=== PATIENT | female | born 2000 | race Hispanic/Latino ===

== ENCOUNTER 2019-03-17 13:59 | Emergency (ER) | payer BC, OTHER ==
[2019-03-17] MEDS ORDERED: NA CHLORIDE 0.9% 1,000 ML ONE (15:16)
[2019-03-17] MEDS ORDERED: ONDANSETRON 4 MG/2 ML VIAL ONE (15:16)
[2019-03-17 15:20] LABS: Absolute Lymphocytes (CBC) 0.9 K/uL (0.7-4.9); Absolute Monocytes 0.7 K/uL (0.1-1.3); Absolute Neutrophil 11.5 K/uL (1.8-8.0); Basophils % 0.3 % (0-1.3); Eosinophils % 0.3 % (0-4.4); Hematocrit 42.7 % (36.0-45.0); Lymphocytes % 6.5 % (15.3-44.8); Monocytes % 5.5 % (3.3-12.3); RBC Red Blood Cell Count 4.84 M/uL (3.86-4.86)
[2019-03-17 15:28] LABS: BUN Blood Urea Nitrogen 15 mg/dL (7-18); Bicarbonate 28 mmol/L (21-32); Glucose Level 122 mg/dL (74-106); Magnesium 1.9 mg/dL (1.8-2.4); Potassium 3.8 mmol/L (3.5-5.1); Sodium Level 138 mmol/L (136-145)
[2019-03-17] MEDS ORDERED: DEXAMETHASONE 10 MG/ML VIAL ONE (15:35)
[2019-03-17] MEDS ORDERED: DIPHENHYDRAMINE 50 MG/ML VIAL ONE (15:35)
[2019-03-17] MEDS ORDERED: METOCLOPRAMIDE 10 MG/2mL INJ ONE (15:35)
[2019-03-17] MEDS ORDERED: KETOROLAC 30 MG/ML INJ ONE (15:35)
--- NOTE | 2019-03-17 15:44 | RAD REPORT ---
EXAM DESCRIPTION: CT - Head Brain Wo Cont - 03/17/2019 3:15 pm CLINICAL HISTORY: Headache COMPARISON: None. TECHNIQUE: Computed axial tomography of the head was obtained. IV contrast was not requested. All CT scans are performed using dose optimization technique as appropriate and may include automated exposure control or mA/KV adjustment according to patient size. FINDINGS: An intracranial bleed is not seen . The ventricles are normal in caliber. No extra-axial fluid collection is noted. Fluid within the sinuses/ mastoids is not seen. IMPRESSION: No acute intracranial abnormality is seen. If patient's symptoms persist MRI of the bra in would be recommended.
[2019-03-17 15:48] LABS: Urine Bacteria 20-50 /HPF (<20); Urine Culture Reflex Order REFLEXED; Urine Mucus 1+ /HPF (NONE SEEN); Urine RBC <5 /HPF (NONE SEEN)
[2019-03-17 15:50] LABS: Urine Blood NEGATIVE (NEG); Urine Glucose NEGATIVE (NEG); Urine Protein 2+ (NEG); Urine Specific Gravity 1.015 (1.005-1.030); Urine pH >8.5 (5.0-7.0)
--- NOTE | 2019-03-17 16:45 | RAD REPORT ---
EXAM DESCRIPTION: [facility] Angio03/17/2019 4:15 pm CLINICAL HISTORY: Left arm numbness COMPARISON: None TECHNIQUE: 50 cc Isovue 370 was administered intravenously. 3D MIP reconstruction performed All CT scans are performed using dose optimization technique as appropriate and may include automated exposure control or mA/KV adjustment according to patient size. FINDINGS: Artifact results in nonvisualization of the brachiocephalic and very proximal right commo n carotid artery. Otherwise the common carotid, internal carotid and external carotid arteries bilaterally are normal. Vertebral arteries are codominant without visualization of an abnormality IMPRESSION: Artifact results in nonvisualization of the brachiocephalic and very proximal right com mon carotid artery. Otherwise, unremarkable exam NASCET criteria used. Mild 0-49% stenosis Moderate 50-69% stenosis Severe 70-99% stenosis
--- NOTE | 2019-03-17 16:51 | RAD REPORT ---
EXAM DESCRIPTION: CTHead angio03/17/2019 4:14 pm CLINICAL HISTORY: Left arm numbness COMPARISON: None TECHNIQUE: CT angiogram of the head was obtained. 3D MIPS reconstruction performed. All CT scans are performed using dose optimization technique as appropriate and may include automated exposure control or mA/KV adjustment according to patient size. FINDINGS: The basilar, internal carotid, anterior cerebral, middle cerebral and posterior cerebral a rteries are normal caliber. An aneurysm is not seen. A significant stenosis is not noted. IMPRESSION: Unremarkable CT angiogram head.
--- NOTE | 2019-03-17 17:09 | ER ---
Nurse's Notes [facility] Name: Sabine Willis Age: 18 yrs Sex: Female : 2000 Arrival Date: 03/17/2019 Time: 14:07 Bed 23 Private MD: Diagnosis: Migraine, unspecified Presentation: 03/17 14:17 Presenting complaint: Patient states: "about an hour ago I started having a headache, aa5 having trouble seeing, and I threw up twice". Pt also c/o left arm tingling. 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 Transition of care: patient was not received from another setting of care. Onset of symptoms was March 17, 2019. Risk Assessment: Do you want to hurt yourself or someone else? Patient reports no desire to harm self or others. Initial Sepsis Screen: Does the patient meet any 2 criteria? No. Patient's initial sepsis screen is negative. Does the patient have a suspected source of infection? No. Patient's initial sepsis screen is negative. Care prior to arrival: None. 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 - Social history:: Smoking status: Patient/guardian denies using tobacco. - Ebola Screening: : No symptoms or risks identified at this time. Screenin:55 Abuse screen: Denies threats or abuse. Denies injuries from another. Nutritional ca1 screening: No deficits noted. Tuberculosis screening: No symptoms or risk factors identified. Fall Risk None identified. Assessment: 14:55 General: Appears in no apparent distress. comfortable, Behavior is calm, cooperative, ca1 appropriate for age. Pain: Complains of pain in face and scalp Pain does not radiate. Pain currently is 7 out of 10 on a pain scale. Pain began 3 hours ago. Is continuous. Neuro: Level of Consciousness is awake, alert, obeys commands, Oriented to person, place, time, situation. Neuro: Reports headache in right since 1230. Cardiovascular: Heart tones S1 S2 present Capillary refill < 3 seconds Patient's skin is warm and dry. Respiratory: Airway is patent Respiratory effort is even, unlabored, Respiratory pattern is regular, symmetrical, Breath sounds are clear bilaterally. GI: Abdomen is flat, non-distended, Bowel sounds present X 4 quads. Abd is soft and non tender X 4 quads. Reports nausea, vomiting, since 1230. : No deficits noted. No signs and/or symptoms were reported regarding the genitourinary system. EENT: No deficits noted. No signs and/or symptoms were reported regarding the EENT system. Derm: Skin is intact, is healthy with good turgor, Skin is pink, warm \\T\\ dry. Musculoskeletal: Circulation, motion, and sensation intact. Capillary refill < 3 seconds, Range of motion: intact in all extremities. 15:55 Reassessment: Patient appears in no apparent distress at this time. Patient and/or ca1 family updated on plan of care and expected duration. Pain level reassessed. Patient is alert, oriented x 3, equal unlabored respirations, skin warm/dry/pink. 16:51 Reassessment: Patient appears in no apparent distress at this time. Patient is alert, ca1 oriented x 3, equal unlabored respirations, skin warm/dry/pink. 17:18 Reassessment: Patient appears in no apparent distress at this time. Patient is alert, ca1 oriented x 3, equal unlabored respirations, skin warm/dry/pink. Patient states feeling better. Vital Signs: 14:18 BP 119 / 63; Pulse 75; Resp 16 S; Temp 98.2(O); Pulse Ox 98% on R/A; Weight 73.94 kg aa5 (R); Height 5 ft. 3 in. (160.02 cm) (R); Pain 9/10; 14:55 BP 110 / 73; Pulse 73; Resp 17 S; Temp 98.1(O); Pulse Ox 100% on R/A; ca1 16:55 BP 114 / 57; Pulse 76; Resp 18 S; Temp 98.2(O); Pulse Ox 100% on R/A; ca1 17:18 BP 108 / 60; Pulse 73; Resp 18 S; Pulse Ox 100% on R/A; ca1 14:18 Body Mass Index 28.87 (73.94 kg, 160.02 cm) aa5 Mounika Coma Score: 17:08 Eye Response: spontaneous(4). Verbal Response: oriented(5). Motor Response: obeys cp commands(6). Total: 15. ED Course: 14:07 Patient arrived in ED. mr 14:17 Arm band placed on. aa5 14:18 Triage completed. aa5 14:46 Srinath Mahan PA is PHCP. cp 14:46 Guanakito Pimentel MD is Attending Physician. cp 14:55 Patient has correct armband on for positive identification. Placed in gown. Bed in low ca1 position. Call light in reach. Side rails up X 1. Pulse ox on. NIBP on. Door closed. Noise minimized. Lights dimmed. Warm blanket given. 14:55 No provider procedures requiring assistance completed. ca1 14:56 Karissa Gillis, RN is Primary Nurse. ca1 15:00 Inserted saline lock: 20 gauge in right antecubital area, using aseptic technique. rv Blood collected. 15:12 Urine Microscopic Only Sent. rv 15:[address] via wheelchair. em2 15:14 CT completed. Patient tolerated procedure well. Patient moved back from CT. em2 15:33 CT Head Brain wo Cont In Process Unspecified. EDMS 16:18 CT Head Angio In Process Unspecified. EDMS 16:18 CT Neck Angio In Process Unspecified. EDMS 17:08 Billy Mcallister MD is Referral Physician. cp 17:19 IV discontinued, intact, bleeding controlled, No redness/swelling at site. Pressure ca1 dressing applied. Administered Medications: 15:05 Drug: NS 0.9% 1000 ml Route: IV; Rate: 1 bolus; Site: right antecubital; rv 16:54 Follow up: Urine output 210 ml; Response: No adverse reaction; IV Status: Completed ca1 infusion 15:05 Drug: Zofran 4 mg Route: IVP; Site: right antecubital; rv 15:34 Follow up: Response: No adverse reaction; Nausea is decreased; Vomiting decreased ca1 15:17 Drug: TORadol 30 mg Route: IVP; Site: right antecubital; ca1 16:54 Follow up: Response: No adverse reaction; Marked relief of symptoms ca1 15:19 Drug: Benadryl 25 mg Route: IVP; Site: right antecubital; ca1 16:54 Follow up: Response: No adverse reaction; Marked relief of symptoms ca1 15:25 Drug: Decadron - Dexamethasone 10 mg Route: IVP; Site: right antecubital; ca1 16:54 Follow up: Response: No adverse reaction; Marked relief of symptoms ca1 15:30 Drug: Reglan 10 mg Route: IVP; Site: right antecubital; ca1 16:53 Follow up: Response: No adverse reaction; Marked relief of symptoms ca1 Output: 16:54 Urine: 210ml; Total: 210ml. ca1 Outcome: 17:09 Discharge ordered by . cp 17:19 Discharged to home ambulatory, with family. ca1 17:19 Condition: stable 17:19 Discharge instructions given to patient, Instructed on discharge instructions, follow up and referral plans. medication usage, Demonstrated understanding of instructions, follow-up care, medications, Prescriptions given X 2. 17:20 Patient left the ED. ca1 Addendum: 03/21/2019 17:23 Addendum: Culture Results: Positive urine culture. No further action required. Other: i w report was reviewed by Dr. Oliveira, pt had no urinary symptoms, no need for antibiotics . Signatures: Dispatcher [employer] [facility] Betzaida Avalos Khushbu Heredia RN RN iw Roma Lomeli RN RN aa5 Suhas Gomez em2 Srinath Mahan PA PA Antonio Romero, RN RN rv Karissa Gillis RN RN ca1 Corrections: (The following items were deleted from the chart) 03/17 14:18 14:18 Immunization history: Flu vaccine is not up to date. aa5 aa5 14:19 14:17 Acuity: TREVOR 3 aa5 aa5 14:23 14:17 Presenting complaint: Patient states: "about an hour ago I started having a aa5 headache, having trouble seeing, and I threw up twice". Pt also c/o left arm tingling. aa5 16:57 16:55 BP 114 / 57; Pulse 76bpm; Resp 18bpm; Spontaneous; Pulse Ox 100% RA; ca1 ca1
--- NOTE | 2019-03-17 17:09 | EDPHYS ---
Physician Documentation [facility] Name: Sabine Willis Age: 18 yrs Sex: Female : 2000 Arrival Date: 03/17/2019 Time: 14:07 Bed 23 Private MD: ED Physician Guanakito Pimentel HPI: 03/17 14:52 This 18 yrs old Female presents to ER via Ambulatory with complaints of cp Vomiting, Numbness Of Arm, Dizziness. 14:55 The patient complains of pain to the right side of head. cp 14:55 The patient describes the headache as constant. 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 Associated signs and symptoms: Pertinent positives: Photophobia double vision, vomiting, numbness of arms initially and now numbness of hands. Severity of symptoms: At its worst the pain was "never this severe". Headache History: Denies prior headaches. 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 - Social history:: Smoking status: Patient/guardian denies using tobacco. - Ebola Screening: : No symptoms or risks identified at this time. ROS: 15:00 Constitutional: Negative for body aches, chills, fever, poor PO intake. cp 15:00 Eyes: Positive for blurry vision, Negative for discharge, pain, redness, vision loss. cp 15:00 ENT: Negative for drainage from ear(s), ear pain, sinus congestion, sinus pain, sore throat, difficulty swallowing, difficulty handling secretions. 15:00 Neck: Negative for pain with movement, pain at rest, stiffness, swollen nodes, tenderness, bony tenderness. 15:00 Cardiovascular: Negative for chest pain, palpitations. 15:00 Respiratory: Negative for cough, shortness of breath, wheezing. 15:00 Abdomen/GI: Positive for nausea and vomiting, Negative for abdominal pain, diarrhea, constipation, black/tarry stool, rectal bleeding. 15:00 Back: Negative for pain at rest, pain with movement, radiated pain. 15:00 : Negative for urinary symptoms. 15:00 Skin: Negative for rash. 15:00 Neuro: Positive for dizziness, headache, tingling, of the right hand and left hand, Negative for altered mental status, weakness. 15:00 All other systems are negative. Exam: 15:05 Head/Face: Normocephalic, atraumatic. Eyes: Pupils equal round and reactive to light, cp extra-ocular motions intact. Lids and lashes normal. Conjunctiva and sclera are non-icteric and not injected. Cornea within normal limits. Periorbital areas with no swelling, redness, or edema. ENT: Nares patent. No nasal discharge, no septal abnormalities noted. Tympanic membranes are normal and external auditory canals are clear. Oropharynx with no redness, swelling, or masses, exudates, or evidence of obstruction, uvula midline. Mucous membranes moist. Neck: Trachea midline, no thyromegaly or masses palpated, and no cervical lymphadenopathy. Supple, full range of motion without nuchal rigidity, or vertebral point tenderness. No Meningismus. Chest/axilla: Normal chest wall appearance and motion. Nontender with no deformity. No lesions are appreciated. 15:05 Constitutional: The patient appears in no acute distress, alert, awake, non-toxic, well developed, well nourished, uncomfortable. Vital Signs: 14:18 BP 119 / 63; Pulse 75; Resp 16 S; Temp 98.2(O); Pulse Ox 98% on R/A; Weight 73.94 kg aa5 (R); Height 5 ft. 3 in. (160.02 cm) (R); Pain 9/10; 14:55 BP 110 / 73; Pulse 73; Resp 17 S; Temp 98.1(O); Pulse Ox 100% on R/A; ca1 16:55 BP 114 / 57; Pulse 76; Resp 18 S; Temp 98.2(O); Pulse Ox 100% on R/A; ca1 17:18 BP 108 / 60; Pulse 73; Resp 18 S; Pulse Ox 100% on R/A; ca1 14:18 Body Mass Index 28.87 (73.94 kg, 160.02 cm) aa5 Mounika Coma Score: 17:08 Eye Response: spontaneous(4). Verbal Response: oriented(5). Motor Response: obeys cp commands(6). Total: 15. MDM: 03/16 17:00 Data reviewed: vital signs, nurses notes, lab test result(s), radiologic studies, CT cp scan, I have discussed the patient's presentation/case with the attending Emergency Department Physician;. 03/17 14:46 Patient medically screened. 15:00 Differential diagnosis: cluster headache, meningitis, meningoencephalitis, migraine, cp subarachnoid bleed, subdural hematoma, tension headache, trigeminal neuralgia. 17:08 Counseling: I had a detailed discussion with the patient and/or guardian regarding: the cp historical points, exam findings, and any diagnostic results supporting the discharge/admit diagnosis, lab results, radiology results, the need for outpatient follow up, a neurologist, to return to the emergency department if symptoms worsen or persist or if there are any questions or concerns that arise at home. Response to treatment: the patient's symptoms have markedly improved after treatment, VSS. Headache markedly improved, and as a result, I will discharge patient. 03/17 14:55 Order name: CBC with Diff 03/17 14:55 Order name: BMP 03/17 14:55 Order name: Magnesium cp 03/17 14:55 Order name: Urine Microscopic Only; Complete Time: 15:57 03/17 15:11 Order name: Urine Dipstick--Ancillary (enter results); Complete Time: 15:57 03/17 15:11 Order name: Urine --Ancillary (enter results); Complete Time: 15:57 03/17 14:55 Order name: CT Head Brain wo Cont; Complete Time: 15:57 03/17 15:25 Order name: CBC with Automated Diff EDPR 03/17 15:53 Order name: Urine Culture EDPR 03/17 15:58 Order name: CT Head Angio; Complete Time: 16:54 cp 03/17 16:54 Interpretation: Report reviewed. 03/17 15:58 Order name: CT Neck Angio; Complete Time: 16:54 03/17 14:55 Order name: Urine Dipstick-Ancillary (obtain specimen); Complete Time: 15:09 cp 03/17 14:55 Order name: Urine Test (obtain specimen); Complete Time: 15:09 cp 03/17 14:55 Order name: IV; Complete Time: 14:56 cp Administered Medications: 15:05 Drug: NS 0.9% 1000 ml Route: IV; Rate: 1 bolus; Site: right antecubital; rv 16:54 Follow up: Urine output 210 ml; Response: No adverse reaction; IV Status: Completed ca1 infusion 15:05 Drug: Zofran 4 mg Route: IVP; Site: right antecubital; rv 15:34 Follow up: Response: No adverse reaction; Nausea is decreased; Vomiting decreased ca1 15:17 Drug: TORadol 30 mg Route: IVP; Site: right antecubital; ca1 16:54 Follow up: Response: No adverse reaction; Marked relief of symptoms ca1 15:19 Drug: Benadryl 25 mg Route: IVP; Site: right antecubital; ca1 16:54 Follow up: Response: No adverse reaction; Marked relief of symptoms ca1 15:25 Drug: Decadron - Dexamethasone 10 mg Route: IVP; Site: right antecubital; ca1 16:54 Follow up: Response: No adverse reaction; Marked relief of symptoms ca1 15:30 Drug: Reglan 10 mg Route: IVP; Site: right antecubital; ca1 16:53 Follow up: Response: No adverse reaction; Marked relief of symptoms ca1 Disposition: 17:30 Chart complete. 03/18 07:28 Co-signature as Attending Physician, Guanakito Pimentel MD. rn Disposition: 03/17/19 17:09 Discharged to Home. Impression: Migraine, unspecified. - Condition is Stable. - Discharge Instructions: Migraine Headache. - Prescriptions for Fiorinal 50- 325-40 mg Oral Capsule - take 1 capsule by ORAL route every 4 hours As needed - not to exceed 6 capsules per day; 20 capsule. Zofran 4 mg Oral Tablet - take 1 tablet by ORAL route every 12 hours As needed; 20 tablet. - Medication Reconciliation Form, Thank You Letter, Antibiotic Education, Prescription Opioid Use form. - Follow up: Billy Mcallister MD; When: 2 - 3 days; Reason: Worsening of condition. - Problem is new. - Symptoms have improved. Signatures: Dispatcher [employer] EDMS Guanakito Pimentel MD MD rn Calderon, Audri, RN RN aa5 Srinath Mahan PA PA cp Vicente, Ronaldo RN RN rv AcKarissa pryor RN RN ca1 Corrections: (The following items were deleted from the chart) 03/17 14:18 14:18 Immunization history: Flu vaccine is not up to date. aa5 aa5 17:20 17:09 03/17/2019 17:09 Discharged to Home. Impression: Migraine, unspecified. Condition ca1 is Stable. Forms are Medication Reconciliation Form, Thank You Letter, Antibiotic Education, Prescription Opioid Use. Follow up: Billy Mcallister; When: 2 - 3 days; Reason: Worsening of condition. Problem is new. Symptoms have improved. cp
[2019-03-17 18:43] LABS: Blood Morphology Comment NOT SEEN (NOT SEEN); Platelet Estimate ADEQ; Urine White Blood Cell Casts OK
== END 2019-03-17 17:20 | disposition home or self-care (01) ==
LOC: ER 13:59
DX: G43.909 Migraine, unspecified, not intractable, without status migrainosus (principal)
CPT/HCPCS: 36415; 70450; 70496; 70498; 80048; 81003; 81015; 81025; 83735; 85025; 87077; 87086; 87088; 87186; 96361; 96374; 96375; 99284; J1100; J2405; J2765; J7030; Q9967